=== PATIENT | male | born 1940 | race Caucasian/White ===

== ENCOUNTER 2017-08-03 22:21 | Emergency (ER) | payer OTHER ==
[~2017-08-03] VITALS: Ht 172.7 cm; Wt 102.0 kg
[2017-08-03 22:23] VITALS: BP 169/81; PULSE 90; RESP 20; TEMP 99; O2SAT 98
[2017-08-03 23:22] VITALS: BP 165/81; PULSE 87; RESP 20; O2SAT 100
[2017-08-04] MEDS ORDERED: KETOROLAC TROMETHAMINE 30 MG/ML (IVP) VIAL IV PUSH ONE
[2017-08-04] MEDS ORDERED: RESP: IPRATROPIUM 0.5 MG/2.5 ML NEB NEB ONE
--- NOTE | 2017-08-04 00:08 | PD ---
HPI Chief Complaint: Cold / Flu Symptoms Time Seen by Provider: 23:16 Travel History International Travel<30 days: No Contact w/Intl Traveler<30days: No Traveled to known affect area: No History of Present Illness HPI Patient is a 76-year-old male who is coming in complaining of sore throat congestion cough shortness of breath all day today. Pt has Hx of hypothyroid and CHF and HTN and BPH, I reviewed all his medications with quiana by facetime phone , pt called her and gave me phone for HPI ROS info. His grandson is bedside who had flulike symptoms a week ago and patients daughter has URI /FLU Sx as well. Patient has history of CHF hypothyroidism gout. Denies CP slight SOB and cough sorethroat congestioon nasal aand oral , daugther on phone worried it could be CHF , I will exam and x-ray and lab and treat URI and CHF as indicated . Pt has not seen another MD for this illness as he is from [place] and driving south to [place] for [employer]. PFSH Past Medical History Hx Anticoagulant Therapy: Yes (COUMADIN ) Cardiovascular Problems: Yes (CHF) Congestive Heart Failure: Yes Hypertension: Yes Past Surgical History Cardiac Surgery: Yes (VALVE REPLACEMENT ) Coronary Artery Bypass Graft: Yes Social History Alcohol Use: No Tobacco Use: No Substance Use: No Allergies-Medications (Allergen,Severity, Reaction): Coded Allergies: No Known Allergies (Unverified , 08/03/17) Reported Meds & Prescriptions Reported Meds & Active Scripts Active Atrovent HFA 12.9 GM Inh (Ipratropium [place]) 17 Mcg/Actuation Aer 2 Puff INH QID Guaifenesin AC Liq (Guaifenesin-Codeine Liq) 100-10 Mg/5 Ml Syrp 10 Ml PO Q6H PRN Azithromycin 250 Mg Tab 250 Mg PO DIRECTED Take 2 tabs (500 mg) on day 1 then 1 tab daily x 4 days. Review of Systems Except as stated in HPI: all other systems reviewed are Neg Respiratory: Positive: Cough, Shortness of Breath Physical Exam Narrative GENERAL: severely deformed hands from gout SKIN: Warm and dry. HEAD: Atraumatic. Normocephalic. EYES: Pupils equal and round. No scleral icterus. No injection or drainage. ENT: No nasal bleeding or discharge. Mucous membranes pink and moist. NECK: Trachea midline. No JVD. CARDIOVASCULAR: Regular rate and rhythm. RESPIRATORY: No accessory muscle use. slight wheeze upper bialteral GASTROINTESTINAL: Abdomen soft, non-tender, nondistended. Hepatic and splenic margins not palpable. MUSCULOSKELETAL: Extremities without clubbing, cyanosis, or edema. No obvious deformities. NEUROLOGICAL: Awake and alert. No obvious cranial nerve deficits. Motor grossly within normal limits. Five out of 5 muscle strength in the arms and legs. Normal speech. PSYCHIATRIC: Appropriate mood and affect; insight and judgment normal. Data Data Last Documented VS Vital Signs Date Time Temp Pulse Resp B/P (MAP) Pulse Ox O2 Delivery O2 Flow Rate FiO2 08/04/17 01:38 08/03/17 23:22 87 20 100 Room Air 08/03/17 22:23 99.0 Orders Orders Influenzae A/B Antigen (08/03/17 23:39) Group A Rapid Strep Screen (08/03/17 23:39) Chest, Pa & Lat (08/03/17 ) Ipratropium Neb (Atrovent Neb) (08/04/17 00:00) Ketorolac Inj (Toradol Inj) (08/04/17 00:00) Strep Culture (Group A) (08/03/17 23:52) Ibuprofen (Motrin) (08/04/17 00:45) Ketorolac Inj (Toradol Inj) (08/04/17 01:00) Guaifen-Cod 200-20 Mg/10ml Liq (Robituss (08/04/17 01:00) Azithromycin (Zithromax) (08/04/17 01:15) Furosemide (Lasix) (08/04/17 01:15) Ed Discharge Order (08/04/17 01:14) [facility] Medical Decision Making Medical Screen Exam Complete: Yes Emergency Medical Condition: Yes Differential Diagnosis chf vs PNA vs copd influenza Narrative Course Bronchitis treated Symptoms and azithromycin and one dose of Lasix feels improved and d/c with RX from atrovent Azithromycin and cough syrup folow up out pt Diagnosis Primary Impression: Bronchitis, acute Qualified Codes: J20.9 - Acute bronchitis, unspecified Additional Impressions: Viral respiratory illness CHF (congestive heart failure) Scripts Ipratropium HFA 12.9 GM Inh (Atrovent HFA 12.9 GM Inh) 17 Mcg/Actuation Aer 2 PUFF INH QID, #1 INHALER 0 Refills Prov: Avery Friedman MD 08/04/17 Guaifenesin-Codeine Liq (Guaifenesin AC Liq) 100-10 Mg/5 Ml Syrp 10 ML PO Q6H Y for COUGH, #1 BOTTLE 0 Refills Prov: Avery Friedman MD 08/04/17 Azithromycin (Azithromycin) 250 Mg Tab 250 MG PO DIRECTED for Infection, #6 TAB 0 Refills Take 2 tabs (500 mg) on day 1 then 1 tab daily x 4 days. Prov: Avery Friedman MD 08/04/17 Disposition: 01 DISCHARGE HOME Condition: Good Avery Friedman MD Aug 04, 2017 00:08
--- NOTE | 2017-08-04 00:27 | RADRPT ---
EXAM DATE/TIME: 08/03/2017 23:58 [facility] COMPARISON: No previous studies available for comparison. INDICATIONS : Cough. MEDICAL HISTORY : Diabetes mellitus type II. Hypertension Neuropathy SURGICAL HISTORY : CABG. Aortic repair. ENCOUNTER: Initial ACUITY: 2 days PAIN SCORE: 9/10 LOCATION: Bilateral chest FINDINGS: The lungs are clear without infiltrate, nodule, or mass. There is no appreciable pleural effusion fo r technique. Heart and mediastinum are unremarkable. There is evidence for prior median sternotomy. Degenerative changes and hypertrophic changes are seen within the disc space and facets of the thora cic spine. CONCLUSION: No acute cardiopulmonary disease. Benito Dodd MD on August 04, 2017 at 0:25 Board Certified Radiologist. This report was verified electronically.
[2017-08-04] MEDS ORDERED: IBUPROFEN 600 MG TAB PO ONE (00:45)
[2017-08-04] MEDS ORDERED: KETOROLAC TROMETHAMINE 60 MG/2 ML (IM) VIAL IM ONE (01:00)
[2017-08-04] MEDS ORDERED: guaiFENesin/CODEINE SYRUP 200 MG/20 MG/10 ML CUP PO ONE (01:00)
[2017-08-04] MEDS ORDERED: GUAISYP4 PO (01:10)
[2017-08-04] MEDS ORDERED: AZIT250T3 PO (01:10)
[2017-08-04] MEDS ORDERED: IPRA17I INH (01:10)
[2017-08-04] MEDS ORDERED: FUROSEMIDE 20 MG TAB PO ONE (01:15)
[2017-08-04] MEDS ORDERED: AZITHROMYCIN 250 MG TAB PO ONE (01:15)
== END 2017-08-04 01:38 | disposition home or self-care (01) ==
LOC: NEPC 22:21
DX: J20.9 Acute bronchitis, unspecified (principal); B97.89 Other viral agents as the cause of diseases classified elsewhere; I11.0 Hypertensive heart disease with heart failure; I50.9 Heart failure, unspecified; Z95.2 Presence of prosthetic heart valve; Z95.1 Presence of aortocoronary bypass graft
CPT/HCPCS: 71046; 87081; 87804; 87880; 94664; 96372; 99284; J1885; J7644